=== PATIENT | female | born 1960 | race Caucasian/White ===

== ENCOUNTER 2018-10-27 08:05 | Day surgery (SDC) | payer OTHER ==
[2018-10-27] VITALS (14 sets, daily range): BP systolic 94–139; BP diastolic 50–64; PULSE 69–84; RESP 11–21; Ht 152.4 cm; Wt 54.6 kg
[~2018-10-27] VITALS: Ht 152.4 cm; Wt 54.6 kg
[~2018-10-27 08:05] MED LIST: CIPROFLOXACIN 400 MG in D5W 200 ML IVPB SCH
[2018-10-27] MEDS ORDERED: IOHEXOL 300MG/ML 30 ML BTL ONE (08:35)
[2018-10-27] MEDS ORDERED: GABA100C14 PO (08:49)
[2018-10-27] MEDS ORDERED: IBUP800T48 PO (08:49)
[2018-10-27] MEDS ORDERED: TAMS0.4C2 PO (08:51)
[2018-10-27] MEDS ORDERED: OXYB5TAB22 PO (08:51)
[2018-10-27] MEDS ORDERED: PROP10TA6 PO (08:51)
[2018-10-27] MEDS ORDERED: MULT-860 PO (08:52)
[2018-10-27] MEDS ORDERED: VIT1TABL46 PO (08:53)
--- NOTE | 2018-10-27 09:09 | PREAC ---
Date/Time of Note Date/Time of Note DATE: 10/27/18 TIME: 09:06 Anesthesia Eval and Record Evaluation Time Pre-Procedure Interview DATE: 10/27/18 TIME: 09:06 Age 58 Sex female NPO: 8 hrs Preoperative diagnosis Lt Kidney stones Planned procedure Lt kidney Lithotripsy Past Medical History Past Medical History: Includes Cardio: HTN Surgery & Anesthesia Issues No known issue Meds Anticoagulation: No Beta Swapna within 24 hr: Yes Reported Medications Vitamin B Complex* (Vitamin B Complex*) 1 Each Tablet, 1 TAB PO DAILY, TAB 10/27/18 Mu-Vits-Min Th/Lycopene/Lutein (CENTRUM SILVER TABLET) 1 Each Tablet, 1 EACH PO DAILY, TAB 10/27/18 Oxybutynin Chloride* (Ditropan* XL) 5 Mg Tabsr, 5 MG PO DAILY, TAB.SA 10/27/18 Tamsulosin Hcl* (Tamsulosin Hcl*) 0.4 Mg Cap.er.24h, 0.4 MG PO HS, CAP 10/27/18 Propranolol Hcl* (Propranolol Hcl*) 10 Mg Tablet, 10 MG PO DAILY, TAB 10/27/18 Ibuprofen* (Motrin*) 800 Mg Tab, 800 MG PO Q6H PRN for PAIN, TAB 10/27/18 Gabapentin* (Gabapentin*) 100 Mg Capsule, 100 MG PO BID, #90 CAP 10/27/18 Current Medications Ciprofloxacin/ Dextrose 200 ml @ 200 mls/hr PREOP IVPB ; Start 10/27/18 at 06:30; Stop 10/27/18 at 20:00 Meds reviewed: Yes Allergies Coded Allergies: Penicillins (Verified Allergy, Unknown, 10/27/18) codeine (Unverified Allergy, Unknown, 10/27/18) CODEINE PER PRE-OP ORDER SHEET Allergies Reviewed: Yes Labs/Studies Labs Reviewed: Reviewed by anesthesiologist test: N/A Studies: ECG Pre-procedure Exam Last vitals BP:124/65, P:78, Spo2:100%, T:98,9 Airway: Adequate mouth opening, Adequate thyromental dist Mallampati: Mallampati II Teeth: Normal Lung: Normal Heart: Normal ASA Physical Status ASA physical status: 3 Emergency: None Planned Anesthetic General/MAC: LMA Planned Pain Management Parenteral pain med Pre-operative Attestations Prior to commencing anesthesia and surgery, the patient was re-evaluated, there was verification of: *The patient's identity *The results of appropriate recent lab work and preoperative vital signs *The above evaluation not changing prior to induction *Anesthetic plan, risk benefits, alternative and complications discussed with patient/family; questions answered; patient/family understands, accepts and wishes to proceed. NOAM GREGG MD Oct 27, 2018 09:09
--- NOTE | 2018-10-27 09:37 | HPN ---
Date/Time of Note Date/Time of Note DATE: 10/27/18 TIME: 09:37 Interval H&P Admission Note Pt. seen H&P reviewed: No system changes LILY ARZOLA Oct 27, 2018 09:37
[2018-10-27] MEDS ORDERED: MIDAZOLAM 1 MG/ML 2 ML INJ ONE (10:11)
[2018-10-27] MEDS ORDERED: FENTAnyl 50 MCG/ML VIAL ONE (10:11)
[2018-10-27] MEDS ORDERED: PHENYLephrine (100 MCG/ML) 10ML SYG ONE (10:22)
[2018-10-27] MEDS ORDERED: PROPOFOL 20 ML ONE (10:47)
[2018-10-27] MEDS ORDERED: ONDANSETRON 4 MG INJ ONE (10:47)
[2018-10-27] MEDS ORDERED: LIDOCAINE 2% (SDV) 5 ML INJ ONE (10:47)
[2018-10-27] MEDS ORDERED: CIPROFLOXACIN 400MG/D5W 200 ML ONE (10:47)
--- NOTE | 2018-10-27 11:07 | PAC ---
Date/Time of Note Date/Time of Note DATE: 10/27/18 TIME: 11:07 Post-Anesthesia Notes Post-Anesthesia Note Last documented vital signs Vital Signs Date Temp Pulse Resp B/P (MAP) Pulse Ox O2 O2 Flow FiO2 Time Delivery Rate 10/27/18 96.4 69 16 139/64 100 08:28 (89) Activity: WNL Respiratory function: WNL Cardiovascular function: WNL Mental status: Baseline Pain reasonably controlled: Yes Hydration appropriate: Yes Nausea/Vomiting absent: Yes Comments BP:122/56, P74, Spo2:100%, T:98 NOAM GREGG MD Oct 27, 2018 11:07
--- NOTE | 2018-10-27 11:18 | PDOCDIS ---
Discharge Instructions DIAGNOSIS Discharge Diagnosis Ureteral stone and stricture CONDITION Berta Patient Condition: Gama Good HOME CARE INSTRUCTIONS: Berta Diet Instructions: Gama Reduced Calorie ACTIVITY: Berta Activity Restrictions: Gama Slowly Increase Activity Berta Bathing Restrictions: Gama Shower FOLLOW UP/APPOINTMENTS Follow-up Plan Follow up beginnig of next week for removal of stent and Erickson, call for date and time REFERRALS Berta Referring Provider: LILY Alford EVAN Oct 27, 2018 11:18
--- NOTE | 2018-10-27 11:23 | OPR ---
Date/Time of Note Date/Time of Note DATE: 10/27/18 TIME: 11:19 Operative Report Procedure Date: Oct 27, 2018 Preoperative Diagnosis right ureteral stone Postoperative Diagnosis Right hydro ureter and ureteral stricture Operation/Procedure Performed Right rgp, right ureteroscopy with dilation of stricture, insertion right ureteral stent Surgeon Landen Ticket Dispatcher none Anesthesia Type: general Estimated Blood Loss: none Transfusion none Specimen none Grafts/Implants none Tubes/Drains dict # [id number] Complications none Pt Condition Post Procedure: stable Disposition: PACU Indications Obstruction Procedure Description dict [id number] LILY ARZOLA Oct 27, 2018 11:23
[2018-10-27] MEDS ORDERED: DIPHENHYDRAMINE 50 MG INJ IV PRN (11:30)
[2018-10-27] MEDS ORDERED: METOCLOPRAMIDE 10 MG INJ IV PRN (11:30)
[2018-10-27] MEDS ORDERED: FENTAnyl 50 MCG/ML VIAL IV PRN (11:30)
[2018-10-27] MEDS ORDERED: MEPERIDINE 25 MG INJ IV PRN (11:30)
[2018-10-27] MEDS ORDERED: ONDANSETRON 4 MG INJ IV PRN (11:30)
--- NOTE | 2018-10-27 14:54 | OPR ---
DATE OF OPERATION: PREOPERATIVE DIAGNOSIS: Distal right ureteral stone. POSTOPERATIVE DIAGNOSIS: Distal right ureteral stricture with hydroureteronephrosis. PROCEDURES: Cystoscopy, right retrograde pyelogram, right ureteroscopy with dilation of distal urete ral stricture and insertion of right ureteral stent. SURGEON: Danial Arzola MD ANESTHESIA: General. COMPLICATIONS: None. DRAINS: A 22 cm 4.8-Serbian double-J ureteral stent. DESCRIPTION OF PROCEDURE: The patient was brought into the operating room and placed on the operatin g room table in the supine lithotomy position. She was prepped and draped in the usual fashion after anesthesia was induced. A timeout was undertaken. Appropriate pressure points were padded. She re ceived preoperative antibiotic therapy and sequential compression devices were applied. She was plac ed on the operating room table and a KUB with obliques was obtained which did not demonstrate any abn ormalities, normal bony structures and normal bowel gas pattern. A rigid cystoscopy was undertaken w ith a 12-degree and 30-degree angle lens. No abnormalities of the urethra could be appreciated. Selvin ateral ureteral orifices were within normal limits. A right retrograde pyelogram was undertaken whic h demonstrated marked dilatation of the collecting system with a filling defect in the distal ureter. The renal pelvis, major and minor calyces were dilated with columnar lateralization of the contrast down to the distal ureter. Through the open-ended catheter, the wire was placed up to the level of the renal pelvis for ureteroscopy. In the distal ureter, ureteral stricture was identified utilizing second wire which intubated the ureter. The ureteroscope was inserted into the distal ureter. A st ricture was identified and this was slowly dilated with the ureteroscope just proximal to the uretera l stricture which was approximately 1 cm in length. A very dilated ureter was appreciated which easi ly allowed for the ureteroscope to be placed up into the level of the renal pelvis. There was no not ed stone. The ureter was once again reevaluated in antegrade fashion. The distal ureter was noted t o be well dilated and the ureteroscope was removed overlying the wire. A 22 cm 4.8-Serbian double-J u reteral stent was inserted with the proximal aspect coiling within the renal pelvis and the distal as pect coiling with the bladder. Attached to the distal end was tapered string. Proper position was c onfirmed with direct vision fluoroscopy and a KUB. At the patient's request preoperatively, a Erickson catheter was inserted as she will be having difficulty in ambulating. She will follow up next week f or a trial of void and cystoscopy, stent removal. The importance of timely removal of the stent was reviewed and she understands increased risk for infection. She was discharged home on [place] on e tab p.o. q.6 hours p.r.n., dispensed #20, no refill. Dictated By: DANIAL ARZOLA MD EGR/NTS Conf#: [id number] DID#: [id number]
== END 2018-10-27 14:25 | disposition home or self-care (01) ==
LOC: SDS 08:05
PROVIDERS: ATTEND Urology
DX: N13.2 Hydronephrosis with renal and ureteral calculous obstruction (principal); I10 Essential (primary) hypertension
CPT/HCPCS: 52332; 52351; C2617; J0744; J2250; J2405; J3010; Q9967; J2370